=== PATIENT | female | born 1975 | race African-American/Black ===

== ENCOUNTER 2021-07-12 07:28 | Inpatient (IN) | payer MEDICAID ==
[~2021-07-12] VITALS: Ht 167.6 cm; Wt 99.3 kg
[2021-07-12] MEDS ORDERED: ONDANSETRON 4MG ODT PO ONE (07:45)
[2021-07-12 08:20] LABS: BASOPHILS % 1.2 % (0.0-2.0); EOSINOPHILS % 0.3 % (0.0-5.0); HEMATOCRIT. 37.6 % (36.0-48.0); HEMOGLOBIN. 12.9 g/dL (12.0-16.0); LYMPHOCYTES % 17.8 % (20.0-50.0); MEAN CORPUSCULAR HEMOGLOBIN 30.3 pg (28.0-32.0); MEAN CORPUSCULAR VOLUME 88.3 fL (81.0-99.0); MONOCYTES % 4.9 % (2.0-8.0); NEUTROPHILS % 75.8 % (40.0-76.0); PLATELET 423 x1000/uL (130-400); RED BLOOD CELL COUNT 4.26 mill/uL (4.2-5.4); RED CELL DISTRIBUTION WIDTH 14.8 % (11.6-14.6)
[2021-07-12 08:26] LABS: CLARITY URINE CLEAR (CLEAR); COLOR URINE YELLOW (YELLOW); KETONES URINE 2+ (NEGATIVE); LEUKOCYTE ESTERASE URINE NEGATIVE (NEGATIVE); NITRITE URINE NEGATIVE (NEGATIVE); OCCULT BLOOD URINE TRACE (NEGATIVE); PROTEIN URINE NEGATIVE (NEGATIVE); SPECIFIC GRAVITY URINE 1.012 (1.005-1.030)
[2021-07-12 08:38] LABS: CHLORIDE 104 mEq/L (98-107)
[2021-07-12] MEDS ORDERED: ASPIRIN 325MG EC TABLET PO ONE (10:45)
[2021-07-12] MEDS ORDERED: ACETAMINOPHEN 325MG TABLET PO PRN (13:30)
[2021-07-12] MEDS ORDERED: LORAZEPAM 0.5MG TABLET PO PRN (13:30)
[2021-07-12] MEDS ORDERED: BENZONATATE 100MG CAPSULE PO PRN (13:30)
[2021-07-12] MEDS ORDERED: ONDANSETRON HCL 4MG/2ML INJ IV PRN (13:30)
[2021-07-12] MEDS ORDERED: HYDROCODONE/ACETAMINOPHEN 5/325MG TABLET PO PRN (13:30)
[2021-07-12] MEDS ORDERED: DOCUSATE SODIUM 100MG CAPSULE PO PRN (13:30)
[2021-07-12 13:33] VITALS: BP 163/67
[2021-07-12] MEDS ORDERED: POTASSIUM CHLORIDE 20MEQ TABLET SR PO SCH (13:45)
[2021-07-12] MEDS ORDERED: NALOXONE HCL 0.4MG/ML VIAL IV PRN (13:45)
[2021-07-12] MEDS: CLONIDINE 0.1MG TABLET PO PRN ×2 (14:00→21:47)
[2021-07-12] MEDS ORDERED: ENOXAPARIN 40MG/0.4ML SYR SUBCUT SCH (15:00)
[2021-07-12 16:00] VITALS: BP 155/77
[2021-07-12 20:00] VITALS: BP 158/70
[2021-07-12] MEDS: ACETAMINOPHEN 325MG TABLET PO PRN (20:25)
[2021-07-12] MEDS: GUAIFENESIN 600MG ER TABLET PO SCH (20:26)
[2021-07-13] VITALS: BP 121/77
[2021-07-13 03:55] VITALS: BP 131/69
[2021-07-13] MEDS: ACETAMINOPHEN 325MG TABLET PO PRN ×2 (06:17→11:54)
[2021-07-13 07:11] LABS: BASOPHILS % 0.8 % (0.0-2.0); EOSINOPHILS % 0.5 % (0.0-5.0); HEMATOCRIT. 38.6 % (36.0-48.0); HEMOGLOBIN. 12.9 g/dL (12.0-16.0); LYMPHOCYTES % 32.5 % (20.0-50.0); MEAN CORPUSCULAR HEMOGLOBIN 29.6 pg (28.0-32.0); MEAN CORPUSCULAR VOLUME 88.4 fL (81.0-99.0); MEAN PLATELET VOLUME 7.9 fl (7.4-10.4); MONOCYTES % 7.5 % (2.0-8.0); NEUTROPHILS % 58.7 % (40.0-76.0); PLATELET 401 x1000/uL (130-400); RED BLOOD CELL COUNT 4.37 mill/uL (4.2-5.4)
[2021-07-13 07:35] LABS: CHLORIDE 103 mEq/L (98-107)
[2021-07-13 08:00] VITALS: BP 153/94
[2021-07-13] MEDS: GUAIFENESIN 600MG ER TABLET PO SCH (08:57)
[2021-07-13] MEDS ORDERED: ENOXAPARIN 30MG/0.3ML SYR SUBCUT SCH (09:00)
[2021-07-13] MEDS ORDERED: LOSARTAN POTASSIUM 25 MG TABLET PO SCH (14:00)
[2021-07-14] MEDS ORDERED: ASPIRIN 81MG TABLET PO SCH (09:00)
== END 2021-07-13 16:30 | disposition left against medical advice (07) | DRG 723 ==
LOC: ER 07:28 → MICUSO 10:36 → 7WST 12:33 → 5WST 18:06
PROVIDERS: ADMIT Internal Medicine; ATTEND Internal Medicine
DX: B34.9 Viral infection, unspecified (principal); U07.1 COVID-19; I21.A1 Myocardial infarction type 2; E87.1 Hypo-osmolality and hyponatremia; I10 Essential (primary) hypertension; F12.90 Cannabis use, unspecified, uncomplicated; Z53.29 Procedure and treatment not carried out because of patient's decision for other reasons; E87.6 Hypokalemia; I25.2 Old myocardial infarction; Z98.891 History of uterine scar from previous surgery; Z88.0 Allergy status to penicillin
CPT/HCPCS: 36415; 71045; 80048; 80053; 80061; 81003; 82550; 82553; 83036; 83880; 84443; 84484; 85025; 85379; 87426; 87804; 93005; 93306; 99291; J1650; Q0162; U0003; U0005; A4315